=== PATIENT | female | born 2005 | race African-American/Black ===

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

== ENCOUNTER 2023-05-30 00:05 | Emergency (ER) | payer MEDICAID, OTHER ==
[2023-05-30] MEDS ORDERED: Prochlorperazine 10 MG/2 ML VIAL ONE (01:05)
[2023-05-30] MEDS ORDERED: Dicyclomine 20 MG/2 ML VIAL ONE (01:05)
== END 2023-05-30 02:15 | disposition home or self-care (01) ==
LOC: CSHERS 00:05
DX: G43.909 Migraine, unspecified, not intractable, without status migrainosus (principal)
CPT/HCPCS: 96372; 99283; J0780

== ENCOUNTER 2024-02-05 10:41 | Emergency (ER) | payer OTHER ==
[2024-02-05] MEDS ORDERED: Ibuprofen 200 MG TAB ONE (11:24)
[2024-02-05] MEDS ORDERED: Acetaminophen 325 MG TAB ONE (11:25)
[2024-02-05 11:55] LABS: Bilirubin Neg (Negative); Blood, Urine 10 (Negative); Clarity Clear (Clear); Glucose, Urine (Dipstick) Normal (Negative); Ketone, Urine 15 mg/dL (Negative); Leukocyte 25 (Negative); Nitrite Negative (Negative); Protein, Urine (Dipstick) 15 mg/dl (Neg-Trace); Specific Gravity, Urine 1.005 (1.005-1.030)
[2024-02-05 12:04] LABS: Bacteria/HPF 3+ HPF (None Seen); CAUTI Indications for Culture Pelvic or flank pain; RBC/HPF 0-3 HPF (0-3); Urine Culture Reflex No No
[2024-02-05 12:05] LABS: Hematocrit 34.2 % (34.9-44.5); Hemoglobin 11.6 g/dL (12.0-15.5); Mean Corpuscular HGB CONC 33.9 g/dL (32.0-36.0); Mean Corpuscular Hemoglobin 28.5 pg (27.0-33.0); Mean Platelet Volume 11.7 fl (7.4-10.4); Platelet Count 176 10x3/uL (150-450); RBC Distribution Width 13.6 % (11.5-14.5); Red Blood Cell (RBC) Count 4.07 10x6/uL (3.90-5.03); White Blood Cell (WBC) Count 18.3 10x3/uL (3.5-10.5)
[2024-02-05 12:12] LABS: BHCG - Serum Negative (NEGATIVE); Pregs Control Background? CLEAR/WHITE (CLR/WHITE); Pregs Control Bar Appear? YES (CONTROL BAR)
[2024-02-05 12:18] LABS: ALT (SGPT) Less than 7 U/L (8-55); AST (SGOT) 10 U/L (5-34); Albumin 3.5 g/dL (3.5-5.0); Alkaline Phosphatase 58 U/L (40-100); Anion Gap 13 mmol/L (10-20); BUN (Urea Nitrogen) 8 mg/dL (7.0-18.7); Bilirubin, Total 0.5 mg/dL (0.2-1.2); Calc. Creatinine Clearance 0 mL/min (70-130); Calcium 8.9 mg/dL (7.8-10.44); Carbon Dioxide 21 mmol/L (22-29); Chloride 106 mmol/L (98-107); Estimated GFR 119; Globulin 3.7 g/dL (2.4-3.5); Glucose 99 mg/dL (70-105); Potassium 3.7 mmol/L (3.5-5.1); Protein, Total 7.2 g/dL (6.0-8.3); Sodium 136 mmol/L (136-145)
[2024-02-05 12:26] LABS: Influenza A by NAA Not Detected (NotDetected); Influenza B by NAA Not Detected (NotDetected); SARS-CoV-2 NAA Rapid Test Not Detected (NotDetected)
[2024-02-05 12:29] LABS: Band 7 % (5-11); Lymphocytes 3 % (28-48); Monocytes 6 % (0-4); Neutrophil 83 % (31-61); Reactive Lymphocytes 1 % (0-10)
[2024-02-05 12:30] LABS: Large Platelets SLIGHT (None Seen); Platelet Adequacy Comment Appears Adequate; RBC Morph Comment Within Normal Limits
[2024-02-05 12:31] LABS: MDiff Complete? YES
== END 2024-02-05 12:57 | disposition home or self-care (01) ==
LOC: CSHERS 10:41
DX: B34.9 Viral infection, unspecified (principal); M54.50 Low back pain, unspecified
CPT/HCPCS: 36415; 80053; 81001; 84703; 85025; 87081; 87430; 99283